=== PATIENT | female | born 1990 | race Caucasian/White ===

== ENCOUNTER 2017-01-22 16:02 | Emergency (ER) | payer OTHER ==
[~2017-01-22] VITALS: Ht 149.9 cm; Wt 54.5 kg
[2017-01-22 16:03] VITALS: BP 133/73; PULSE 63; RESP 18; TEMP 98.8; O2SAT 98
--- NOTE | 2017-01-22 17:09 | PD ---
HPI Chief Complaint: Related Problem Time Seen by Provider: 16:54 Travel History International Travel<30 days: No Contact w/Intl Traveler<30days: No Traveled to known affect area: No History of Present Illness HPI 26-year-old female came to the emergency room with history of vaginal bleeding. She says her last menstrual cycle was on December 09. She did home test last week and it was positive. Since 2 PM today she started having severe cramps and vaginal bleeding. Currently she is bleeding pretty happy she said. She had an appointment with an [employer] and she called them today. She was asked to come to the emergency room. She has never seen an OB never had an ultrasound yet. Vital signs otherwise stable. Patient is A0. [facility] Past Medical History Narrative Medical List of her past medical, surgical, social and family history is reviewed from the nursing note. ?: LMP: 12/11/2016 Social History Alcohol Use: No Tobacco Use: No Substance Use: No Allergies-Medications (Allergen,Severity, Reaction): Coded Allergies: No Known Allergies (Unverified , 01/22/17) Comments No known drug allergies. Reported Meds & Prescriptions Reported Meds & Active Scripts Active No Active Prescriptions or Reported Medications Narrative Medication List of her home medications reviewed from the nursing note. Review of Systems Except as stated in HPI: all other systems reviewed are Neg Physical Exam Narrative GENERAL: Awake, alert, anxious, mild distress SKIN: Focused skin assessment warm/dry. HEAD: Atraumatic. Normocephalic. EYES: Pupils equal and round. No scleral icterus. No injection or drainage. ENT: No nasal bleeding or discharge. Mucous membranes pink and moist. NECK: Trachea midline. No JVD. CARDIOVASCULAR: Regular rate and rhythm. No murmur appreciated. RESPIRATORY: No accessory muscle use. Clear to auscultation. Breath sounds equal bilaterally. GASTROINTESTINAL: Abdomen soft, non-tender, nondistended. Hepatic and splenic margins not palpable. MUSCULOSKELETAL: No obvious deformities. No clubbing. No cyanosis. No edema. NEUROLOGICAL: Awake and alert. No obvious cranial nerve deficits. Motor grossly within normal limits. Normal speech. PSYCHIATRIC: Appropriate mood and affect; insight and judgment normal. Data Data Last Documented VS Vital Signs Date Time Temp Pulse Resp B/P Pulse Ox O2 Delivery O2 Flow Rate FiO2 4/10/17 18:57 16 01/22/17 18:56 82 101/71 98 Room Air 01/22/17 16:03 98.8 Orders Beta Hcg (Quant/Titer) (01/22/17 17:05) Complete Blood Count With Diff (01/22/17 17:05) Basic Metabolic Panel (Bmp) (01/22/17 17:05) Type And Screen (01/22/17 17:05) Ua Includes Microscopic (01/22/17 17:05) Ed Urine Pregnancytest Poc (01/22/17 17:05) Acetamin-Codeine 300-30 Mg (Tylenol-Code (01/22/17 17:30) Acetamin-Codeine 120-12 Liq (Tylenol - C (01/22/17 17:45) Us Pelvis (Ques Pr/Ect)W Trans (01/22/17 ) Labs Laboratory Tests Test 01/22/17 01/22/17 17:09 17:12 Urine Color COLORLESS Urine Turbidity CLEAR Urine pH 5.5 Urine Specific [place] 1.004 Urine Protein NEG mg/dL Urine Glucose (UA) NEG mg/dL Urine Ketones NEG mg/dL Urine Occult Blood MOD Urine Nitrite NEG Urine Bilirubin NEG Urine Urobilinogen LESS THAN 2.0 MG/DL Urine Leukocyte Esterase NEG Urine WBC LESS THAN 1 /hpf Urine Bacteria OCC /hpf White Blood Count 9.9 TH/MM3 Red Blood Count 4.01 MIL/MM3 Hemoglobin 12.2 GM/DL Hematocrit 35.8 % Mean Corpuscular Volume 89.1 FL Mean Corpuscular Hemoglobin 30.4 PG Mean Corpuscular Hemoglobin 34.1 % Concent Red Cell Distribution Width 13.9 % Platelet Count 239 TH/MM3 Mean Platelet Volume 8.1 FL Neutrophils (%) (Auto) 71.8 % Lymphocytes (%) (Auto) 18.1 % Monocytes (%) (Auto) 6.4 % Eosinophils (%) (Auto) 3.1 % Basophils (%) (Auto) 0.6 % Neutrophils # (Auto) 7.1 TH/MM3 Lymphocytes # (Auto) 1.8 TH/MM3 Monocytes # (Auto) 0.6 TH/MM3 Eosinophils # (Auto) 0.3 TH/MM3 Basophils # (Auto) 0.1 TH/MM3 CBC Comment DIFF FINAL Differential Comment Sodium Level 141 MEQ/L Potassium Level 3.6 MEQ/L Chloride Level 106 MEQ/L Carbon Dioxide Level 25.8 MEQ/L Anion Gap 9 MEQ/L Blood Urea Nitrogen 14 MG/DL Creatinine 0.70 MG/DL Estimat Glomerular Filtration 101 ML/MIN Rate Random Glucose 94 MG/DL Calcium Level 8.5 MG/DL Human Chorionic Gonadotropin, 16 MIU/ML Quant Blood Type O POSITIVE Antibody Screen NEGATIVE Blood Bank Comment MDM Medical Decision Making Medical Screen Exam Complete: Yes Emergency Medical Condition: Yes Medical Record Reviewed: Yes Differential Diagnosis Miscarriage, ectopic Narrative Course 5:15 PM awaiting for the blood test results. I'll do a bedside sonogram to check for any in-utero . 5:51 PM patient was given by mouth pain medication. I tried to do a bedside pelvic ultrasound but I was unable to visualize. Also patient was in significant discomfort and the test was not 100% satisfactory. I've ordered a transvaginal ultrasound. Awaiting for the chemistry and beta hCG. CBC is within normal limits. 6:05 PM her beta-hCG is 16 only. There is a very good chance that she has miscarried. Awaiting for the pelvic ultrasound. 7:10 PM awaiting for the pelvic ultrasound report. 7:35 PM CAT scan report is back and no is visible. At this point I will discharge her and ask her to get a repeat beta-hCG in 48 hours. Patient understands the orders. Procedures Procedure Narrative Emergency Department Pelvic ultrasound was performed with patient consent. The curvilinear probe was used in the transverse and sagittal views within the suprapubic region. Bladder was visualized but unable to locate the uterus or any intrauterine . Unsuccessful exam. EKG Prior to Arrival: No Diagnosis Primary Impression: Miscarriage Referrals: Primary Care Physician 2 days Additional Instructions: Please return to the ER in 48 hours to get a repeat blood test done. We'll also get this done through your OB. It has to be done in 48 hours. Please return to the ER if the condition worsens or any other new concerns. Take the medication as per the prescription direction. Med/Other Pt SpecificInfo: No Change to Meds Scripts No Active Prescriptions or Reported Meds Disposition: 01 DISCHARGE HOME Condition: Stable Rk Calvin MD Jan 22, 2017 17:09
[2017-01-22] MEDS ORDERED: ACETAMINOPHEN/CODEINE 300 MG/30 MG TAB PO ONE (17:30)
[2017-01-22 17:32] LABS: AUTOMATED NEUTROPHIL # 7.1 TH/MM3 (1.8-7.7); BASOPHIL # 0.1 TH/MM3 (0-0.2); BASOPHIL % 0.6 % (0.0-2.0); EOSINOPHIL # 0.3 TH/MM3 (0-0.4); EOSINOPHIL % 3.1 % (0.0-4.0); HEMATOCRIT 35.8 % (35.0-46.0); HEMO FLAGS DIFF FINAL; LYMPH % 18.1 % (9.0-44.0); LYMPHOCYTE # 1.8 TH/MM3 (1.0-4.8); MEAN CELL VOLUME 89.1 FL (80.0-100.0); MEAN CORPUSCULAR HEMOGLOBIN 30.4 PG (27.0-34.0); MEAN CORPUSCULAR HGB CONC 34.1 % (32.0-36.0); MONO % 6.4 % (0.0-8.0); NEUT % 71.8 % (16.0-70.0); PLATELET COUNT 239 TH/MM3 (150-450); RED BLOOD COUNT 4.01 MIL/MM3 (4.00-5.30); RED CELL DISTRIBUTION WIDTH 13.9 % (11.6-17.2); WHITE BLOOD COUNT 9.9 TH/MM3 (4.0-11.0)
[2017-01-22] MEDS ORDERED: ACETAMINOPHEN/CODEINE ELIX 120 MG/12 MG/5 ML CUP PO ONE (17:45)
[2017-01-22 17:46] LABS: BACTERIA, URINE OCC /hpf; BLOOD, URINE MOD (NEG); GLUCOSE,URINE NEG (NEG); KETONE, URINE NEG (NEG); NITRITE,URINE NEG (NEG); PH, URINE 5.5 (5.0-8.5); URINE COLOR COLORLESS (YELLW/STRAW)
[2017-01-22 17:57] LABS: BICARBONATE 25.8 MEQ/L (21.0-32.0); POTASSIUM 3.6 MEQ/L (3.5-5.1)
[2017-01-22 18:56] VITALS: BP 101/71; PULSE 82; RESP 16; O2SAT 98
[2017-01-22 18:57] VITALS: RESP 16
--- NOTE | 2017-01-22 19:24 | RADRPT ---
EXAM DATE/TIME: 01/22/2017 18:23 [place] COMPARISON: No previous studies available for comparison. INDICATIONS : Pelvic pain and vaginal bleeding. LAB(S): Beta-hC MEDICAL HISTORY : . SURGICAL HISTORY : None. ENCOUNTER: Initial ACUITY: 1 day PAIN SCORE: 4/10 LOCATION: Bilateral pelvis MEASUREMENTS: UTERUS: 7.5 x 3.6 x 4.5 cm ENDOMETRIAL STRIPE: 5 mm RIGHT OVARY: 2.1 x 1.3 x 2.8 cm LEFT OVARY: 2.4 x 1.6 x 2.8 cm FREE FLUID: Yes Right adnexa. CROWN RUMP LENGTH: Not visualized. = WKS DAYS FHR: Not visualized. BPM FINDINGS: UTERUS: Uterus is empty. RIGHT OVARY: Ovary contains no mass or significant cystic lesion. LEFT OVARY: 1.8 direct complex area left ovary without identifiable cardiac activity. MISCELLANEOUS: No free fluid. CONCLUSION: Inconclusive exam for ectopic beta of 16. Correlation is suggested. There are no products of concep tion identified however one 1.8 cm complex areas seen left ovary. Saad Hodges MD FACR on January 22, 2017 at 19:20 Board Certified Radiologist. This report was verified electronically.
== END 2017-01-22 20:23 | disposition home or self-care (01) ==
LOC: NEPD 16:02
DX: O03.9 Complete or unspecified spontaneous abortion without complication (principal)
CPT/HCPCS: 76700; 76817; 80048; 81001; 84702; 84703; 85025; 86850; 86900; 86901